=== PATIENT | female | born 1950 | race Asian ===

== ENCOUNTER 2020-03-18 15:48 | Emergency (ER) | payer MEDICARE ==
[~2020-03-18] VITALS: Ht 152.4 cm; Wt 43.0 kg
--- NOTE | 2020-03-18 15:48 | NUR ---
INITIAL PT CONTACT. PT PRESENTS TO ED VIA EMS C/O DIZZINESS PRESENT WHEN STANDING UP, BEGINING THIS AM, "I WAS HAVING A HARD TIME CONTROLLING MY BP, TOOK MY MEDS THIS AM". PER PARAMEDICS BP WAS 215/107 UPON ARRIVAL, PT TOOK OWN BP MEDS. DIZZINESS HAS NOW RESOLVED. PT DENIES ANY COMPLAINTS AT THIS TIME. CALL LIGHT WITHIN REACH, FALL PRECAUTIONS IN PLACE. WILL CONTINUE TO MONITOR.
[2020-03-18] MEDS ORDERED: SODIUM CHLORIDE 0.9% 1,000ML IVBOLUS ONE (16:30)
--- NOTE | 2020-03-18 16:35 | NUR ---
PT UP TO BEDSIDE COMMODE WITH THIS RN TO OBTAIN URINE SAMPLE.
[2020-03-18 16:49] LABS: MICROSCOPIC AUTO
--- NOTE | 2020-03-18 17:02 | NUR ---
BEDSIDE REPORT TO ERICA CAUSEY
--- NOTE | 2020-03-18 17:13 | NUR ---
BEDSIDE REPORT FROM YOLANDA RN, PT CARE TRANSFERRED AT THIS TIME. PT NAD, RESTING ON GURNEY, REQUESTING WATER, PT MEDICATED PER JUN, BED IN [facility], CALL LIGHT ON LAP, WCTM. WAITING FOR ADDITIONAL TEST RESULTS.
[2020-03-18 17:32] LABS: MEAN CORPUSCULAR HEMOGLOBIN 29.2 pg (27.0-34.8); MEAN PLATELET VOLUME 7.4 fL (7.4-10.4); PLATELET COUNT 191 x10^3/uL (130-400); RED BLOOD COUNT 3.53 x10^6/uL (3.82-5.3); RED CELL DISTRIBUTION WIDTH 14.5 % (9.6-15.2)
[2020-03-18 17:44] LABS: ALANINE AMINOTRANSFERASE 8 U/L (12-78); ALBUMIN 3.1 g/dL (3.4-5.0); ANION GAP 3 mmol/L (5-15); CALCIUM 8.2 mg/dL (8.5-10.1); CHLORIDE 107 mmol/L (98-107); CREATININE 0.74 mg/dL (0.55-1.02)
[2020-03-18 17:48] LABS: ALKALINE PHOSPHATASE 176 U/L (45-117); BILIRUBIN,TOTAL 0.5 mg/dL (0.2-1.0); TOTAL PROTEIN 7.9 g/dL (6.4-8.2); TROPONIN I 0.015 ng/mL (0.000-0.045)
[2020-03-18 18:16] LABS: MD YES
--- NOTE | 2020-03-18 18:22 | NUR ---
pt states she doesnt feel safe dc'ing at this time. pt provided meal, no change in condition. pt okay'd medical information to be released to family. pt family states they want her to be covid tested and admitted. edison hutchinson aware. tm
[2020-03-18 18:23] LABS: BAND#(MANUAL) 0.06 x10^3/uL; BANDS%(MANUAL) 2 % (0-7); EOS#(MANUAL) 0.03 x10^3/uL (0.0-0.4); EOS% (MANUAL) 1 % (1-7); LYMPH#(MANUAL) 0.61 x10^3/uL (1-3.4); LYMPHS% (MANUAL) 21 % (22-44); MONOS#(MANUAL) 0.58 x10^3/uL (0.3-2.7); MONOS% (MANUAL) 20 % (2-9); REACTIVE LYMPHS # (MANUAL) 0.15 x10^3/uL (0-0); REACTIVE LYMPHS % (MANUAL) 5 % (0-0); SEG#(MANUAL) 1.48 x10^3/uL (1.8-6.8); SEGS% (MANUAL) 51 % (42-75)
[2020-03-18 18:25] LABS: ANISOCYTOSIS 1+
[2020-03-18 18:26] LABS: HYPOCHROMIA 1+; OVALOCYTES 1+; POLYCHROMASIA 1+
[2020-03-18 18:29] LABS: <PLATELET ESTIMATE> ADEQUATE; <PLT MORPHOLOGY> NORMAL PLT MORPH
--- NOTE | 2020-03-18 18:58 | NUR ---
pt swabbed per request, nad, no change in condition, no symptoms exhibited aside from dizziness while in ed today. pt to be dc'd
--- NOTE | 2020-03-18 19:13 | NUR ---
Patient given discharge instructions and they have confirmed that they understand the instructions. Patient ambulatory with steady gait but preferred wheelchair to lobby for dc. pt states brother in law will be providing ride home. nad, no change in condition, no personal belongings left in room at [facility].
[2020-03-18 19:14] VITALS: BP 143/78
== END 2020-03-18 19:16 | disposition home or self-care (01) ==
LOC: ED 16:44
DX: U07.1 COVID-19 (principal); D72.819 Decreased white blood cell count, unspecified; D64.9 Anemia, unspecified; R42 Dizziness and giddiness; R07.89 Other chest pain; R50.9 Fever, unspecified; R05 Cough; I10 Essential (primary) hypertension; I44.7 Left bundle-branch block, unspecified
CPT/HCPCS: 36415; 71045; 80053; 81001; 84484; 85025; 93005; 96360; 99285; J7030; U0003